=== PATIENT | female | born 1975 | race Caucasian/White ===

== ENCOUNTER 2016-10-08 13:38 | Day surgery (SDC) | payer BC ==
[2016-10-07 18:45] LABS: ASCORBIC ACID (UR NOT ORDER) NEG (NEG); BILIRUBIN, URINE NEGATIVE (NEG); KETONE, URINE 20 MG/DL (NEG); LEUKOCYTE ESTERASE(NOT OR SMALL (NEG); WBC (NOT ORDERED) (RFLEX) 4 (0-5)
--- NOTE | ~2016-10-08 | OP ---
Record Of Operation [facility] [address] [place]. [address] NAME: MATT PETE : 79 STATUS : [facility]#: [id number] AGE: 41 ADM/REG DATE : 10/08/16 MR#: [id number] REPORT SERV DATE: 10/08/16 DICTATED BY: SUSAN COWART DATE: 10/08/16 REPORT STATUS : Draft TRANSCRIBED BY: MODL DATE: 10/08/16 DATE OF PROCEDURE: 10/08/2016 PREPROCEDURE DIAGNOSIS: A 2 cm left renal pelvic calculus. POSTPROCEDURE DIAGNOSIS: A 2 cm left renal pelvic calculus. PROCEDURE: Left ESWL. SURGEON: Susan Cowart M.D. GREENS PICKER: Carole Lizama. ANESTHESIA: MAC. HISTORY: Ms. Pete is a 41-year-old white female, who was referred to me with a large left renal pelvic calculus. She declined percutaneous nephrolithotomy, due to the fact that she has a caregiver for her . She requested left ESWL without a stent. She understands that she may very well require multiple lithotripsy sessions on this stone, if lithotripsy is successful, and she could have Steinstrasse or fragments stuck in her ureter, due to the large size of the stone. I answered all her questions regarding the procedure. I also explained the risks, benefits, alternatives, expected outcomes, imponderables potential complications and so forth. Risks include, but not limited to bleeding, infection, incomplete stone fragmentation, Steinstrasse, hematoma, injury to neighboring organs, need for further urologic procedures, anesthesia complications, and so forth. I answered all her questions I believe to her satisfaction. Subsequently, she requested the procedure and provided her informed written consent. PROCEDURE IN DETAIL: On 10/08/2016, the patient brought to the lithotripsy suite. She was placed supine on the Dornier Compact Delta II lithotripsy machine. Biplanar fluoroscopy was used to localize the left renal calculus. A time-out was called, the proper patient and procedure were confirmed. Levaquin was administered as a perioperative antibiotic. At this time, the anesthesia team established monitored anesthesia care. Subsequently, we delivered a total of 5000 shocks at a maximum power of 4 and rate of 120 shocks per minute to the stone. Fluoroscopy time was 41 seconds. The patient tolerated the procedure well without immediate complications. She was awakened and transferred to the recovery area in stable condition. RAC/MODL Susan Cowart M.D. Record Of Operation [address] [address] NAME: MATT PETE : 79 STATUS : [facility] PAT#: [id number] AGE: 41 ADM/REG DATE : 10/08/16 MR#: [id number] REPORT SERV DATE: 10/08/16 DICTATED BY: SUSAN COWART DATE: 10/08/16 REPORT STATUS : Draft TRANSCRIBED BY: KRISTAL DATE: 10/08/16 / [id number] CC: Napoleon Garcia M.D.
[~2016-10-08 13:38] MED LIST: ACET500CAP PO; BIOTIN10 MG PO; CHEWABLE VITAMIN; DYNACIN50 MG PO; LIPOTRIAD1 CAP PO; LORTABLIQ PO; MICROGESTI2; MULTIVIT/MIN PO; MYRAC50 MG PO; OS500+D PO; PERCOCET 7.5/321 TAB PO; PROMETHAZINE; VITAMIN B-122500 MCG SL; VITAMIN D1000 UNI1 PO; VITAMIN D400 UNI1 PO; VITAMINS
== END 2016-10-08 17:20 | disposition home or self-care (01) ==
LOC: SDC 13:38
PROVIDERS: Urology
PROC: 0TF4XZZ Fragmentation in Left Kidney Pelvis, External Approach (ICD-10-PCS; principal; 2016-10-08 16:00)
DX: N20.0 Calculus of kidney (principal); E66.01 Morbid (severe) obesity due to excess calories; Z68.41 Body mass index [BMI] 40.0-44.9, adult; Z98.84 Bariatric surgery status; Z88.6 Allergy status to analgesic agent
CPT/HCPCS: 50590; 74000; 81001; 84703; 87086; J2250; J3010

== ENCOUNTER 2016-11-05 05:06 | Day surgery (SDC) | payer BC ==
--- NOTE | ~2016-11-05 | OP ---
Record Of Operation [facility] [address] [place]. [address] NAME: MATT PETE : 79 STATUS : REG [facility]#: [id number] AGE: 41 ADM/REG DATE : 11/05/16 MR#: [id number] REPORT SERV DATE: 11/05/16 DICTATED BY: SUSAN COWART DATE: 11/05/16 REPORT STATUS : Draft TRANSCRIBED BY: MODL DATE: 11/05/16 DATE OF PROCEDURE: 11/05/2016 PREPROCEDURE DIAGNOSIS: 5 mm left UPJ calculi. POSTPROCEDURE DIAGNOSIS: 5 mm left UPJ calculi. PROCEDURE: Left ESWL. WHEEL ASSEMBLER: Carole Lizama. ANESTHESIA: MAC. HISTORY: Ms Pete is a 41-year-old white female with a large left UPJ calculus. She has previously undergone left ESWL with incomplete stone fragmentation. Today, she has two sizable UPJ fragments as well as the larger original stone. We are going to make an effort to eradicate the fragments and then chip away the larger stone. I highlighted the risks, benefits, alternatives, imponderables, expected outcomes, and potential complications inherent to this decision. Risks include, but not limited to bleeding, infection, incomplete stone fragmentation, Steinstrasse, hematoma, injury to neighboring organs, need for further urologic procedures, anesthesia complications, and so forth. I answered all her questions I believe to her satisfaction. Subsequently, she requested the procedure and provided her informed written consent. PROCEDURE IN DETAIL: On 11/05/2016, the patient was brought to the lithotripsy suite. She was placed supine on the Dornier Compact Delta II lithotriptor. Biplanar fluoroscopy was used to localize the left UPJ calculi. A time-out was called. The proper patient and procedure were confirmed. Levaquin was administered as a perioperative antibiotic. At this time, the Anesthesia team established monitored anesthesia care. Subsequently, we delivered a total of 2500 shocks, divided 1000 shocks to each 5 mm stone, as well as 500 shocks to the medial aspect of the largest UPJ calculus at a maximum power of 4 in rate of 120 shocks per minute. Fluoroscopy time was 2 minutes 15 seconds. The patient tolerated the procedure well without immediate complications, was awakened and transferred to the recovery area in stable condition. There were no complications. RAC/MODL Susan Cowart M.D. / [id number] CC: Record Of Operation [address] [address] NAME: MATT PETE : 79 [place]US : [place] [facility] [place] [id number] AGE: 41 ADM/REG DATE : 11/05/16 MR#: [id number] REPORT SERV DATE: 11/05/16 DICTATED BY: SUSAN COWART DATE: 11/05/16 REPORT STATUS : Draft TRANSCRIBED BY: KRISTAL DATE: 11/05/16 Napoleon Garcia M.D.
== END 2016-11-05 08:39 | disposition home or self-care (01) ==
LOC: SDC 05:06
PROVIDERS: Urology
PROC: 0TF4XZZ Fragmentation in Left Kidney Pelvis, External Approach (ICD-10-PCS; principal; 2016-11-05 07:00)
DX: N20.0 Calculus of kidney (principal); E66.9 Obesity, unspecified; Z95.1 Presence of aortocoronary bypass graft; Z88.6 Allergy status to analgesic agent; Z79.899 Other long term (current) drug therapy; Z87.442 Personal history of urinary calculi; Z98.890 Other specified postprocedural states
CPT/HCPCS: 50590; 74000; 84703; J2250; J2405; J3010

== ENCOUNTER 2016-11-26 05:05 | Day surgery (SDC) | payer BC ==
--- NOTE | ~2016-11-26 | OP ---
Record Of Operation [facility] [address] [place]. [address] NAME: MATT PETE : 79 STATUS : REG [facility]#: [id number] AGE: 41 ADM/REG DATE : 11/26/16 MR#: [id number] REPORT SERV DATE: 11/26/16 DICTATED BY: SUSAN COWART DATE: 11/26/16 REPORT STATUS : Draft TRANSCRIBED BY: MODL DATE: 11/26/16 DATE OF PROCEDURE: 11/26/2016 PREPROCEDURE DIAGNOSIS: A 2 cm left distal ureteral steinstrasse. POSTPROCEDURE DIAGNOSIS: A 2 cm left distal ureteral steinstrasse. PROCEDURE: Left extracorporeal shock wave lithotripsy. CORRECTION OFFICER HEAD: Carole Lizama. ANESTHESIA: MAC. HISTORY: Ms. Pete is a 41-year-old white female with a history of a left ureteropelvic junction calculus. We have been addressing this with left ESWL. She has developed a column of stone in the distal ureter. I suggested proceeding with lithotripsy to treat this column with stone. I highlighted the risks, benefits, alternative treatments, imponderables, expected outcomes, and potential complications inherent to the decision. Risks include but not limited to bleeding, infection, incomplete stone fragmentation, need for further urologic procedures, hematoma, anesthesia complications, and so forth. I answered all her questions, I believe to her satisfaction. Subsequently, she requested the procedure and provided her informed written consent. PROCEDURE IN DETAIL: On 11/26/2016, the patient was brought to the lithotripsy suite. She was placed supine on the Dornier Compact Delta II lithotriptor. Biplanar fluoroscopy was used to localize the column with stone and we set out on the distal most aspect of the column to begin lithotripsy. A time-out was called. The proper patient and procedure confirmed. Levaquin was administered as a perioperative antibiotic. At this time, the Anesthesia team established monitored anesthesia care. Subsequently, we delivered a total of 3000 shocks at a maximum power of 6 and rate of 120 shocks per minute to the stone. We divided the shocks at approximately 1000 per quadrant of the column beginning in the distal most aspect proceeding to the middle and finishing with the most cephalad aspect. Fluoroscopy time was 1 minute 19 seconds. The patient tolerated the procedure well without immediate complications and was transferred to the recovery area in stable condition. There were no complications. RAC/MODL Susan Cowart M.D. / [id number] Record Of Operation [address] [address] NAME: MATT PETE : 79 [place] [facility] [place] [id number] AGE: 41 ADM/REG DATE : 11/26/16 MR#: [id number] REPORT SERV DATE: 11/26/16 DICTATED BY: SUSAN COWART DATE: 11/26/16 REPORT STATUS : Draft TRANSCRIBED BY: KRISTAL DATE: 11/26/16 CC: Napoleon Garcia M.D.
== END 2016-11-26 08:41 | disposition home or self-care (01) ==
LOC: SDC 05:05
PROVIDERS: Urology
PROC: 0TF7XZZ Fragmentation in Left Ureter, External Approach (ICD-10-PCS; principal; 2016-11-26 07:00)
DX: N20.1 Calculus of ureter (principal); E66.9 Obesity, unspecified; Z68.39 Body mass index [BMI] 39.0-39.9, adult; Z98.890 Other specified postprocedural states; Z98.84 Bariatric surgery status
CPT/HCPCS: 50590; 74000; 84703; J2250; J3010